=== PATIENT | female | born 1980 | race Caucasian/White ===

== ENCOUNTER → 2020-08-17 | Outpatient (CLI) | payer SELFPAY | END | disposition home or self-care (01) | LOC: LABWHC1 14:53 | PROVIDERS: ATTEND Family Medicine | DX: R50.9 Fever, unspecified (principal); R05 Cough | CPT/HCPCS: U0003; C9803 ==

== ENCOUNTER 2023-06-06 11:44 | Day surgery (SDC) | payer MEDICAID ==
[2023-06-06] MEDS ORDERED: LACTATED RINGERS 1,000 ML IV ONE (12:08)
[2023-06-06 12:32] VITALS: RESP 16; TEMP 97.5
[2023-06-06] MEDS: LACTATED RINGERS 1,000 ML IV SCH ×2 (13:29→13:55)
[2023-06-06] MEDS ORDERED: PROPOFOL 10 MG/ML 20 ML VIAL IV ONE (13:36)
--- NOTE | 2023-06-06 13:54 | P.PCN ---
Date of Procedure: 06/06/23 Procedure(s) Performed: BRIEF HISTORY: Patient is a 42-year-old pleasant white female scheduled for an elective colonoscopy as a part of evaluation of intermittent rectal bleeding for the last 6 months duration. She is has family history of colon cancer times the mother at age 52. PROCEDURE PERFORMED: Colonoscopy. PREOPERATIVE DIAGNOSIS: Intermittent rectal bleeding and family history of colon cancer. IV sedation per Anesthesia. PROCEDURE: After informed consent was obtained, the patient, was brought into the endoscopy unit. IV sedation was administered by Anesthesia under continuous monitoring. Digital rectal examination was normal. Initially the Olympus CF-160 flexible video colonoscope was then inserted in the rectum, gradually advanced into the cecum without any difficulty. Careful examination was performed as the scope was gradually being withdrawn. Ileocecal valve and the appendiceal orifice were visualized and appeared normal. Prep was excellent. Mucosa of the cecum, ascending colon, transverse colon, descending colon, sigmoid colon, and rectum appeared normal. Retroflexion was performed in the rectum and small internal hemorrhoids were seen. The patient tolerated the procedure well. IMPRESSION: Normal-appearing colon from rectum to cecum with no evidence of colorectal neoplasia Small internal hemorrhoids. RECOMMENDATIONS: Findings of this examination were discussed with the patient as her family. She was advised to be a high-fiber diet and take fiber supplemen ts a regular basis. Recommend repeat screening colonoscopy in 5 years because of the family history of colon cancer.
[2023-06-06 14:11] VITALS: BP 137/58; PULSE 72
== END 2023-06-06 14:28 | disposition home or self-care (01) ==
LOC: ORWHC2ENDO 11:44
PROVIDERS: ATTEND Internal Medicine Gastroenterology
DX: K64.8 Other hemorrhoids (principal); Z80.0 Family history of malignant neoplasm of digestive organs; I10 Essential (primary) hypertension; E03.9 Hypothyroidism, unspecified; F41.9 Anxiety disorder, unspecified; F32.A Depression, unspecified; K21.9 Gastro-esophageal reflux disease without esophagitis; Z79.890 Hormone replacement therapy; Z79.899 Other long term (current) drug therapy; Z88.0 Allergy status to penicillin
CPT/HCPCS: 81025; 45378; J2704